=== PATIENT | male | born 1995 | race Caucasian/White ===

== ENCOUNTER 2024-06-14 09:09 | Outpatient (AMB) | payer OTHER, SELFPAY ==
--- NOTE | 2024-06-14 09:11 | A.OFFVIS_ITS ---
Intake Visit Reasons: painless scrotal mass Intake Note: Patient is present for PAINLESS SCROTAL MASS Urology Medication: Antibiotic Allergy: Blood Thinner: Allergies No Known Allergies Allergy (Verified 06/14/24 09:14) Medication List - Last Reconciled 06/14/24 by Joan Tellez MD No Known Home Meds HPI Comments Details: 06/14/24--Raudel is a 28 year old male with concerns regarding a mass in the left testicle. He denies pain. He states he has felt it for a few years but he was transitioning for seeing his pediatrition and then covid hit. He had a physicial this year and brought it to the attention of his PCP who referred him. He admits to one STD in the past which he was treated for. He is sexually active in a monagamous relationship. He denies irritative voiding symptoms. On exam I do not palpate a discrete mass, there is fullness in the lower pole of the epididymis. Will get an scrotal sono. [facility] Medical History Testicular mass Review of Systems Const All systems reviewed & are unremarkable except as noted in HPI and below Reports no additional complaints Eyes Reports no additional complaints ENT Reports no additional complaints Card Reports no additional complaints Resp Reports no additional complaints GI Reports no additional complaints Reports as per HPI Musc Reports no additional complaints Skin/Breast Reports system reviewed and no additional complaints, except as documented Neuro Reports no additional complaints Psych Reports no additional complaints Endo Reports no additional complaints Collins/Lymph Reports no additional complaints Aller/Immun Reports no additional complaints Physical Exam Const General: healthy appearing, no acute distress and well developed Orientation/consciousness: patient oriented x3 HEENT Head: Yes normocephalic and Yes atraumatic Eyes Conjunctivae: conjunctivae normal Neck Neck: Yes normal visual inspection Chest Chest palpation & inspection: normal inspection of the chest Resp Effort & Inspection: normal respiratory effort Cardio Rate: regular rate GI Inspection: Yes normal to inspection Other: Testes are nontender, a discrete mass is not palpated in the testicle, there is fullness in the lower pole of the epididymis. Penis: normal penis Skin General skin exam: no rashes or lesions noted Neuro General: patient oriented x3 Extrem General: No pedal edema Psych Appearance: grossly normal Affect: normal affect Results AMB Urinalysis, Automated UA Leukoctes 0 Massimo/uL Last Edit by DARLENE Sevilla on 06/14/24 09:27 UA Nitrite Negative Last [facility] 06/14/[facility] 09:27 UA Urobilinogen 0.2 mg/dL Last Edit by Marty Summers [facility] on 06/14/24 09:2 7 UA Protein 0 mg/dL Last Edit by Marty Summers [facility] on 06/14/24 09:27 UA pH 6.0 Last Edit by Marty Summers [facility] on 06/14/24 09:27 UA Blood 0 Joao/uL Last Edit by Marty Summers [facility] on 06/14/24 09:27 UA Specific [place] 1.020 Last Edit by Marty Summers [facility] on 06/14/24 09: 27 UA Ketone Negative Last Edit by Marty Summers [facility] on 06/14/24 09:27 UA Bilirubin 0 mg/dL Last Edit by Marty Summers [facility] on 06/14/24 09:27 UA Glucose 0 mg/dL Last Edit by Marty Summers [facility] on 06/14/24 09:27 Results Reviewed Results Reviewed: Laboratory Last Values Urine pH (Auto) 6.0 06/14/24 09:27 Specific [place] (Auto) 1.020 06/14/24 09:27 Urine Protein (Auto) 0 mg/dL 06/14/24 09:27 Glucose (UA)(Auto) 0 mg/dL 06/14/24 09:27 Urine Ketones (Auto) Negative 06/14/24 09:27 Urine Blood (Auto) 0 Joao/uL 06/14/24 09:27 Urine Nitrite (Auto) Negative 06/14/24 09:27 Urine Bilirubin (Auto) 0 mg/dL 06/14/24 09:27 Urine Urobilinogen (Auto) 0.2 mg/dL 06/14/24 09:27 Leukocyte Esterase (Auto) 0 Massimo/uL 06/14/24 09:27 Assessment & Plan Assessment & Plan (1) Mass of left testicle: Code(s): N50.89 - Other specified disorders of the male genital organs Category: Medical Plan scrotal US. Orders: Orders US scrotum Today N50.89 - Other specified disorders of the male genital organs AMB Urinalysis Automated Today Z13.9 - Encounter for screening, unspecified Patient Instructions: The patient had an opportunity to ask questions regarding treatment plan. The patient expressed understanding and agreement with the above treatment plan. The patient is aware they should contact our office by phone for worsening of their current condition or the appearance of new symptoms. Compliance is encouraged with any medications and followup testing that is ordered. It is a privilege to be allowed the opportunity to participate in the urologic care of your patient. If you have any questions or concerns regarding treatment for the above conditions please do not hesitate to contact me. The office telephone contact is [phone]. This note is constructed in part using voice recognition software. While every effort has been made to ensure accuracy slat basket maker helper machine errors may have been included. Yours sincerely, Joan Tellez MD Coding Level of Care Code New Pt Level 4 (76129) Diagnoses Mass of left testicle N50.89
== END 2024-06-14 09:48 | disposition home or self-care (01) ==
PROVIDERS: PCP Internal Medicine; Visit Provider Urology
DX: N50.89 Other specified disorders of the male genital organs (principal); Z13.9 Encounter for screening, unspecified
CPT/HCPCS: 99204

== ENCOUNTER → 2024-06-14 09:09 | Outpatient (BNVA) | payer OTHER, SELFPAY | PROVIDERS: PCP Internal Medicine; Visit Provider Urology | DX: N50.89 Other specified disorders of the male genital organs (principal) | CPT/HCPCS: 81003 ==